=== PATIENT | male | born 1980 | race Caucasian/White ===

== ENCOUNTER 2018-10-11 15:08 | Emergency (ER) | payer OTHER ==
[~2018-10-11] VITALS: Ht 180.3 cm; Wt 109.1 kg
[2018-10-11] MEDS ORDERED: ANUCORT-HC25 MG RE (16:19)
[2018-10-11 16:21] VITALS: BP 125/80
== END 2018-10-11 16:31 | disposition home or self-care (01) | DRG 395 ==
LOC: ED 15:08
DX: K64.9 Unspecified hemorrhoids (principal)

== ENCOUNTER 2021-02-18 18:18 | Emergency (ER) | payer OTHER ==
[~2021-02-18] VITALS: Ht 180.3 cm; Wt 100.0 kg
[~2021-02-18 18:18] MED LIST: ANUCORT-HC25 MG RE
[2021-02-18] MEDS ORDERED: LORTAB 1010 MG PO (20:12)
[2021-02-18] MEDS ORDERED: CYCLOBENZAPRINE10 MG PO (20:12)
[2021-02-18 20:45] VITALS: BP 135/87
== END 2021-02-18 21:00 | disposition home or self-care (01) | DRG 552 ==
LOC: ED 18:18
DX: S33.5XXA Sprain of ligaments of lumbar spine, initial encounter (principal); K21.9 Gastro-esophageal reflux disease without esophagitis; X58.XXXA Exposure to other specified factors, initial encounter